=== PATIENT | male | born 1965 | race Caucasian/White ===

== ENCOUNTER 2016-11-14 17:23 | Emergency (ER) | payer OTHER ==
[~2016-11-14] VITALS: Ht 177.8 cm; Wt 126.1 kg
--- NOTE | 2016-11-14 17:27 | NUR ---
Pt [id number]: anxiety. accidental overdose on "chocolate with mushrooms". Placed on monitor. Awaiting md order
[2016-11-14] MEDS ORDERED: IV SET PRIMARY PUMP SET 1 EA INFUS.SET MC ONE (17:57)
[2016-11-14] MEDS ORDERED: IV NS 0.9% 1,000 ML ONE (17:57)
[2016-11-14] MEDS ORDERED: LORAZEPAM INJ 2 MG/ML VIAL ONE (17:58)
[2016-11-14] MEDS ORDERED: IV NS 0.9% 1,000 ML BAG IV ONE (18:00)
[2016-11-14] MEDS ORDERED: LORAZEPAM INJ 2 MG/ML VIAL IV ONE (18:00)
--- NOTE | 2016-11-14 18:00 | NUR ---
[facility] #20 IV ACCESS. BLOOD SAMPLE COLLECTED
[2016-11-14 18:29] LABS: BILIRUBIN,URINE NEGATIVE (NEGATIVE); BLOOD, URINE NEGATIVE Ery/uL (NEGATIVE); COLOR,URINE DARK YELLO (YELLOW); KETONES,URINE TRACE (NEGATIVE); LEUKOCYTE ESTERASE ,URINE NEGATIVE (NEGATIVE); NITRITE, URINE NEGATIVE (NEGATIVE); PH,URINE 6.5 (5.0-8.0); PROTEIN,URINE TRACE mg/dl (NEGATIVE); UGLUCOSE NEGATIVE (NEGATIVE); UROBILINOGEN,URINE 0.2 EU/dL (0.2)
[2016-11-14 18:31] LABS: BASOPHILS # (AUTO) 0.1 /CMM (0.0-0.2); BASOPHILS % (AUTO) 0.8 % (0.0-2.0); CALCIUM, SERUM 9.9 mg/dL (8.5-10.1); CARBON DIOXIDE 29 mmol/L (21-32); CHLORIDE 105 mmol/L (98-107); EOSINOPHILS # (AUTO) 0.6 /CMM (0.0-0.7); EOSINOPHILS % (AUTO) 7.2 % (0.0-6.0); GFR 79 mL/min (>60); GLUCOSE 139 mg/dL (74-106); HEMATOCRIT 52 % (39-51); HEMOGLOBIN 17.6 g/dL (13.5-17.5); LYMPHOCYTES # (AUTO) 2.9 /CMM (0.8-4.8); LYMPHOCYTES % (AUTO) 36.9 % (20.0-44.0); MEAN CORPUSCULAR HEMOGLOBIN 31 PG (26.0-33.0); MEAN CORPUSCULAR HGB CONC 34 g/dl (31.0-36.0); MEAN CORPUSCULAR VOLUME 92 fL (80-96); MONOCYTES # (AUTO) 0.6 /CMM (0.1-1.30); MONOCYTES % (AUTO) 7.3 % (2.0-12.0); NEUTROPHILS # (AUTO) 3.8 /CMM (1.8-8.9); NEUTROPHILS % (AUTO) 47.8 % (43.0-81.0); PLATELET COUNT (AUTO) 224 /CMM (150-450); POTASSIUM 3.8 mmol/L (3.5-5.1); RED BLOOD CELL COUNT(AUTO) 5.62 MIL/uL (4.5-6.0); SODIUM SERUM 145 mmol/L (136-145); UREA NITROGEN, BLOOD 13 mg/dL (7-18); WHITE BLOOD COUNT (AUTO) 7.9 K/uL (4.3-11.0)
[2016-11-14 18:34] LABS: APPEARANCE,URINE SLIGHTLY HAZY (CLEAR)
[2016-11-14 18:41] LABS: ADD URINE CULTURE NO; BACTERIA,URINE None seen /HPF (None Seen); RBC,URINE 0-2 /HPF (0-2); SQUAMOUS EPITHELIAL CELL,UR Rare /HPF (None Seen); WBC,URINE 0-2 /HPF (0-3)
[2016-11-14 18:50] LABS: ALANINE AMINOTRANSFERASE 73 U/L (12-78); ALBUMIN 4.5 g/dL (3.4-5.0); ALCOHOL, BLOOD < 3 mg/dL (0-0); ALKALINE PHOSPHATASE 82 U/L (46-116); ASPARTATE AMINOTRANSFERASE 43 U/L (15-37); BILIRUBIN,TOTAL 0.4 mg/dL (0.2-1.0); TOTAL PROTEIN, SERUM 8.5 g/dL (6.4-8.2)
[2016-11-14 18:51] LABS: ACETAMINOPHEN 0 ug/ml (10-30); SALICYLATE 1.7 mg/dL (2.8-20.0)
[2016-11-14 18:51] LABS: CANNABINOID, URINE NEGATIVE (NEGATIVE); PHENCYCLIDINE SCREEN,URINE NEGATIVE (NEGATIVE)
[2016-11-14 20:05] VITALS: BP 163/104
--- NOTE | 2016-11-14 20:07 | NUR ---
Patient discharged to home in stable condition. Written and verbal after care instructions given. Patient verbalizes understanding of instruction.
--- NOTE | 2016-11-14 20:07 | NUR ---
IV removed. Catheter intact and site benign. Pressure and 4x4 applied to site. No bleeding noted.
== END 2016-11-14 20:13 | disposition home or self-care (01) ==
LOC: ER 17:26
DX: F41.9 Anxiety disorder, unspecified (principal); F19.10 Other psychoactive substance abuse, uncomplicated; Z85.71 Personal history of Hodgkin lymphoma
CPT/HCPCS: 36415; 80048; 80076; 80305; 80329; 81001; 85025; 93005; 96361; 96374; 99285; A4606; G0480 ×2; J2060; J7030; Z7610; 81000-TC; G6039-TC